=== PATIENT | male | born 1955 | race Caucasian/White ===

== ENCOUNTER 2020-11-09 06:33 | Day surgery (SDC) | payer MEDICARE, OTHER ==
[2020-11-06 11:29] LABS: COVID AG,FIA SOURCE NASOPHARYNGEAL
[~2020-11-09] VITALS: Ht 177.8 cm; Wt 118.2 kg
[~2020-11-09 06:33] MED LIST: A20IH1 NEB; DULA1.5P SQ; FENO160T14 PO; FLUT16H NASAL; LEVO-72 PO; METO50 PO; OMEP20 PO; PIOG15TA6 PO; SITA1TAB6 PO; SODIUM CHLORIDE 0.9% 1,000 ML IV ONE; SODIUM CHLORIDE 0.9% 1,000 ML ONE; SOLI5 PO; TAMS-13 PO; VALS1TAB77 PO
[2020-11-09] MEDS ORDERED: LIDOCAINE 2% 30 ML JELLY TP ONE (06:34)
[2020-11-09] MEDS ORDERED: ALBUTEROL SULFATE 2.5 MG/0.5 ML NEB SOLUTION NEB ONE (06:34)
[2020-11-09] MEDS ORDERED: BENZOCAINE 20% 50 MCG/SPRAY 57 GM TP ONE (06:34)
[2020-11-09] MEDS ORDERED: MIDAZOLAM HCL 5 MG/ML VIAL ONE (07:24)
[2020-11-09] MEDS ORDERED: FentaNYL CITRATE PF 100 MCG/2 ML VIAL ONE (07:24)
[2020-11-09 07:27] LABS: GLUCOMETER DEV NAME(LOC) SDS.; GLUCOSE,POINT OF CARE 146 MG/DL (70-110)
[2020-11-09] MEDS ORDERED: MethylPREDNISolone SOD SUCC 125 MG/2 ML VIAL ONE (09:47)
[2020-11-09] MEDS ORDERED: MethylPREDNISolone SOD SUCC 125 MG/2 ML VIAL IVP ONE (10:00)
[2020-11-09] MEDS ORDERED: OXYGEN THERAPY IH SCH (20:00)
== END 2020-11-09 10:50 | disposition home or self-care (01) ==
LOC: SURGERY 06:33
PROVIDERS: ATTEND Internal Medicine Critical Care Medicine
DX: J38.4 Edema of larynx (principal); B37.0 Candidal stomatitis; E11.9 Type 2 diabetes mellitus without complications; J43.9 Emphysema, unspecified; I10 Essential (primary) hypertension; Z98.890 Other specified postprocedural states; Z79.899 Other long term (current) drug therapy
CPT/HCPCS: 31623; 31624; 71045; 82962; 87015; 87070; 87101; 87205; 87206; 87220; 87426; 88108; 88184; 88185; 88312; 93005; C9803; J2250; J2930; J3010; J7030; J7613

== ENCOUNTER 2021-06-18 05:58 | Day surgery (SDC) | payer MEDICARE, OTHER ==
[~2021-06-18] VITALS: Ht 177.8 cm; Wt 118.2 kg
[~2021-06-18 05:58] MED LIST changes: +ALBU8HFA PO; +AMLO5TAB66 PO; +ATOR-2 PO; +DOCU250C99 PO; +EMPA25TA PO; +EZET10TA57 PO; +FENO145T PO; -FENO160T14 PO; +LACT10SO10 PO; -LEVO-72 PO; +MONT-40 PO; +NYST100033 PO; +P-EP-31 PO; +SENN-277 PO; -SODIUM CHLORIDE 0.9% 1,000 ML IV ONE; -SODIUM CHLORIDE 0.9% 1,000 ML ONE; +VALS160T31 PO; -VALS1TAB77 PO
[2021-06-18] MEDS ORDERED: LIDOCAINE 2% 5 ML JELLY TP ONE (05:59)
[2021-06-18] MEDS ORDERED: BENZOCAINE 20% 50 MCG/SPRAY 57 GM TP ONE (05:59)
[2021-06-18] MEDS ORDERED: SODIUM CHLORIDE 0.9% 1,000 ML ONE (06:29)
[2021-06-18] MEDS ORDERED: SODIUM CHLORIDE 0.9% 1,000 ML IV ONE (06:30)
[2021-06-18 06:54] LABS: COVID AG,FIA SOURCE NASAL SWAB
[2021-06-18] MEDS ORDERED: FentaNYL CITRATE PF 100 MCG/2 ML VIAL ONE (07:11)
[2021-06-18] MEDS ORDERED: MIDAZOLAM HCL 5 MG/ML VIAL ONE (07:11)
[2021-06-18 07:21] LABS: GLUCOMETER DEV NAME(LOC) SDS.; GLUCOSE,POINT OF CARE 131 MG/DL (70-110)
[2021-06-18] MEDS ORDERED: MethylPREDNISolone SOD SUCC 125 MG/2 ML VIAL IVP ONE (09:00)
[2021-06-18] MEDS ORDERED: MethylPREDNISolone SOD SUCC 125 MG/2 ML VIAL ONE (10:06)
[2021-06-18] MEDS ORDERED: OXYGEN THERAPY IH SCH (20:00)
== END 2021-06-18 11:45 | disposition home or self-care (01) ==
LOC: SURGERY 05:58
PROVIDERS: ATTEND Internal Medicine Critical Care Medicine
DX: J38.4 Edema of larynx (principal); B37.0 Candidal stomatitis; Z79.899 Other long term (current) drug therapy; Z98.890 Other specified postprocedural states; F17.210 Nicotine dependence, cigarettes, uncomplicated; G47.30 Sleep apnea, unspecified; J44.9 Chronic obstructive pulmonary disease, unspecified; I10 Essential (primary) hypertension; I25.10 Atherosclerotic heart disease of native coronary artery without angina pectoris; M19.90 Unspecified osteoarthritis, unspecified site; E78.00 Pure hypercholesterolemia, unspecified
CPT/HCPCS: 31623; 31624; 71045; 82962; 87015; 87070; 87101; 87206; 87220; 87426; 88184; 88185; C9803; J2250; J2930; J3010; J7030; 88112; 88312